=== PATIENT | male | born 1970 | race Native Hawaiian/Other Pacific Islander ===

== ENCOUNTER 2016-12-01 09:02 | Day surgery (SDC) | payer OTHER ==
[2016-11-30 06:39] VITALS: BMI 16.9
[2016-12-01] MEDS ORDERED: Propofol 10 mg/ml Inj (20 ML) ONE (09:52)
[2016-12-01] MEDS ORDERED: Midazolam 2 MG/2 ML VIAL ONE (09:52)
[2016-12-01] MEDS ORDERED: Lactated Ringer's 1,000 ML IV SCH (11:00)
[2016-12-01 11:55] VITALS: BP 111/76; PULSE 78; RESP 16; TEMP 97.7; O2SAT 100
== END 2016-12-01 13:00 | disposition home or self-care (01) ==
LOC: ENDO 09:02
PROVIDERS: ATTEND Internal Medicine Gastroenterology
DX: R13.10 Dysphagia, unspecified (principal); K29.70 Gastritis, unspecified, without bleeding; C32.1 Malignant neoplasm of supraglottis; Z94.0 Kidney transplant status
CPT/HCPCS: 43235; J0690; J2250; J2704; J3010; J7040; J7120

== ENCOUNTER 2016-12-06 03:05 | Observation (INO) | payer OTHER ==
[2016-12-06] MEDS ORDERED: Sodium Chloride 0.9% 1,000 ML IV SCH (03:45)
[2016-12-06 04:29] LABS: ALB/GLOB RATIO 1.1 (1.1-1.8); ALKALINE PHOSPHATASE 67 U/L (38-133); ALT/SGPT 25 U/L (7-56); AST/SGOT 35 U/L (15-59); BILIRUBIN,TOTAL 0.5 mg/dL (0.2-1.3); BLOOD UREA NITROGEN 43 mg/dL (7-21); CALCIUM 9.5 mg/dL (8.4-10.5); CARBON DIOXIDE 28 mmol/L (21-33); CHLORIDE 100 mmol/L (98-107); GFR AFRICAN-AMERICAN > 60; GLUCOSE,RANDOM 86 mg/dL (70-110); POTASSIUM 4.6 mmol/L (3.6-5.0); SODIUM 138 mmol/L (132-148)
[2016-12-06 04:30] LABS: INR 0.99 (0.93-1.08); PARTIAL THROMBOPLASTIN TIME 28.2 Seconds (23.7-30.8)
--- NOTE | 2016-12-06 04:34 | ED PDOC ---
Arrival/HPI - General Chief Complaint: GI Problem Time Seen by Provider: 12/06/16 03:23 Historian: Patient - History of Present Illness Narrative History of Present Illness (Text): 12/06/16 03:33 Maikel Ott is a 46 year old male, whose past medical history includes renal transplant, who presents to the Emergency department complaining of hemoptysis. Patient states he has been coughing up blood since yesterday and notes he recently had an upper endoscopy performed by his behavioral health aide on 12/01/2016. 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 Patient also complaining of some dizziness. Patient denies any fever, chills, chest pain, shortness of breath, nausea, vomiting, diarrhea, urinary symptoms, back pain, neck pain, headache, or any other complaints. Time/Duration: Other (yesterday) Symptom Onset: Gradual Symptom Course: Unchanged Activities at Onset: Rest, Light Context: Home Past Medical History - Provider Review Nursing Documentation Reviewed: Yes - Infectious Disease Hx of Infectious Diseases: None - Cardiac Hx Pacemaker: No - Pulmonary Hx Respiratory Disorders: No - Neurological Hx Paralysis: No - HEENT Hx HEENT Disorder: No - Renal Hx Renal Failure: Yes (right kidney transplant) - Endocrine/Metabolic Hx Endocrine Disorders: No - Hematological/Oncological Hx Blood Transfusions: No Hx Blood Transfusion Reaction: No Hx Cancer: Yes (Throat CA) - Integumentary Hx Dermatological Disorder: No - Musculoskeletal/Rheumatological Hx Musculoskeletal Disorders: No - Gastrointestinal Hx Gastrointestinal Disorders: No - Genitourinary/Gynecological Hx Genitourinary Disorders: No - Psychiatric Hx Emotional Abuse: No Hx Physical Abuse: No Hx Substance Use: No - Surgical History Other/Comment: Kidney transplant - Anesthesia Hx Anesthesia: Yes Hx Anesthesia Reactions: No Hx Malignant Hyperthermia: No - Suicidal Assessment Feels Threatened In Home Enviroment: No Family/Social History - Physician Review Nursing Documentation Reviewed: Yes Family/Social History: No Known Family HX Smoking Status: Never Smoked Hx Alcohol Use: No Hx Substance Use: No Allergies/Home Meds Allergies/Adverse Reactions: Allergies No Known Allergies Allergy (Verified 11/14/16 16:26) Review of Systems - Physician Review All systems were reviewed & negative as marked: Yes - Review of Systems Constitutional: Normal. absent: Fevers Eyes: Normal ENT: Normal Respiratory: Cough (+hemoptysis). absent: SOB Cardiovascular: Normal. absent: Chest Pain Gastrointestinal: Normal. absent: Abdominal Pain, Diarrhea, Nausea, Vomiting Genitourinary Male: Normal. absent: Dysuria, Frequency, Hematuria, Urinary Output Changes Musculoskeletal: Normal. absent: Back Pain, Neck Pain Skin: Normal. absent: Rash Neurological: Dizziness. absent: Headache Endocrine: Normal Hemo/Lymphatic: Normal Psychiatric: Normal Physical Exam Vital Signs Reviewed: Yes Vital Signs Temp Pulse Resp BP Pulse Ox 12/06/16 03:16 98.2 F 103 H 18 101/68 98 Temperature: Afebrile Blood Pressure: Normal Pulse: Regular Respiratory Rate: Normal Appearance: Positive for: Non-Toxic, Comfortable, Other (Emaciated) Pain Distress: None Mental Status: Positive for: Alert and Oriented X 3 - Systems Exam Head: Present: Atraumatic, Normocephalic Pupils: Present: PERRL Extroacular Muscles: Present: EOMI Conjunctiva: Present: Normal Mouth: Present: Moist Mucous Membranes Neck: Present: Normal Range of Motion Respiratory/Chest: Present: Clear to Auscultation, Good Air Exchange. No: Respiratory Distress, Accessory Muscle Use Cardiovascular: Present: Regular Rate and Rhythm, Normal S1, S2. No: Murmurs Abdomen: Present: Normal Bowel Sounds. No: Tenderness, Distention, Peritoneal Signs Back: Present: Normal Inspection Upper Extremity: Present: Normal Inspection. No: Cyanosis, Edema Lower Extremity: Present: Normal Inspection. No: Edema Neurological: Present: GCS=15, CN II-XII Intact, Speech Normal Skin: Present: Warm, Dry, Normal Color. No: Rashes Psychiatric: Present: Alert, Oriented x 3, Normal Insight, Normal Concentration Medical Decision Making ED Course and Treatment: 12/06/16 03:33 Impression: 46 year old male complaining of hemoptysis and dizziness. Plan: -- EKG -- Chest X-ray -- Labs, blood type and screen -- IV fluids -- Reassess and disposition Prior Visits: Notes and results from previous visits were reviewed. Progress Notes: Reviewed EKG, NSR at [address]-segment elevations or depressions, no T-wave inversions, normal intervals. 12/06/16 04:[address] Gomes, covering for Dr. Crawford, who requests pt go to hospitalist service. 12/06/16 04:50 Reviewed Chest X-ray, shows no acute processes. 12/06/16 05:00 Case discussed with medical sales consultant transmission mechanic, who is aware and agrees with plan. 12/06/16 05:[address] Vale, who is aware and agrees with plan. Accepts pt in to hospitalist service. Pt will go to [facility] observation for hemoptyisis and epiglottic mass/cancer. - Lab Interpretations Lab Results: 12/06/16 03:58 12/06/16 03:58 Lab Results 12/06/16 04:00: Blood Type Pending, Antibody Screen Pending, BBK History Checked No verified bt 12/06/16 03:58: PT 10.7, INR 0.99, APTT 28.2 12/06/16 03:58: Sodium 138, Potassium 4.6, Chloride 100, Carbon Dioxide 28, Anion Gap 15, BUN 43 H, Creatinine 1.5 H, Est GFR ( Amer) > 60, Est GFR ( Non-Af Amer) 50, Random Glucose 86, Calcium 9.5, Total Bilirubin 0.5, AST 35, ALT 25, Alkaline Phosphatase 67, Total Protein 8.0, Albumin 4.1, Globulin 3.9, Albumin/Globulin Ratio 1.1 12/06/16 03:58: WBC 6.7, RBC 3.33 L, Hgb 10.0 L, Hct 29.8 L, MCV 89.5, MCH 30.0 , MCHC 33.6, RDW 14.4, Plt Count 406, MPV 9.8 I have reviewed the lab results: Yes - RAD Interpretation Radiology Orders: 12/06/16 03:40 CHEST PORTABLE [RAD] Stat Nephrologist: ED Physician - EKG Interpretation Interpreted by ED Physician: Yes Type: 12 lead EKG - Medication Orders Current Medication Orders: Sodium Chloride (Sodium Chloride 0.9%) 1,000 mls @ 100 mls/hr IV .Q10H KEHINDE - Scribe Statement The provider has reviewed the documentation as recorded by the Scribe Suzy Aguirre All medical record entries made by the Scribe were at my direction and personally dictated by me. I have reviewed the chart and agree that the record accurately reflects my personal performance of the history, physical exam, medical decision making, and the department course for this patient. I have also personally directed, reviewed, and agree with the discharge instructions and disposition. Disposition/Present on Arrival - Present on Arrival Any Indicators Present on Arrival: No History of DVT/PE: No History of Uncontrolled Diabetes: No Urinary Catheter: No History of Decub. Ulcer: No History Surgical Site Infection Following: None - Disposition Have Diagnosis and Disposition been Completed?: Yes Diagnosis: Mass of throat, History of renal transplant, Hemoptysis Disposition: HOSPITALIZED Disposition Time: 05:29 Patient Plan: Observation Patient Problems: Current Active Problems Problem Status Onset Hemoptysis Acute Mass of throat Acute History of renal transplant Chronic Condition: STABLE
[2016-12-06 04:39] VITALS: BMI 16.5
[2016-12-06 04:49] LABS: HEMATOCRIT 29.8 % (42.0-52.0); MEAN CELL VOLUME 89.5 fL (80.0-105.0); MEAN CORPUSCULAR HGB CONC 33.6 g/dl (31.0-37.0); MEAN PLATELET VOLUME 9.8 fl (7.0-11.0); RED CELL DISTRIBUTION WIDTH 14.4 % (11.5-14.5); WHITE BLOOD COUNT 6.7 10^3/ul (4.5-11.0)
--- NOTE | 2016-12-06 05:42 | CP.PCM.HP ---
<[employer] - Last Filed: 12/06/16 07:07> History of Present Illness - History of Present Illness History of Present Illness: 46 y/o M with PMH of Squamous cell carcinoma of the epiglottis and right renal transplant presents to the ED for 2 day history of hemoptysis. Pt states he had an EGD done 3 days ago, since that time he has noticed new onset hemotysis. He has states he brings up blood mixed with phlegm multiple times per day since his EGD. Pt states it is not painful. 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 EGD reveal an exophytic mass covering 50% of the airway. Pt is able to tolerate liquids, but not solids at this time. Pt does however state he is normally able to tolerate bananas, but as of last night , pt could not swallow it. He admits to recent weight loss secondary to decreased oral intake and increased fatigue. Pt also mentions b/l nasal pain since EGD procedure. Denies CP, SOB, N/V/D, headache, visual changes, dysuria, abdominal pain. 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 Allergies: NKDA Medication: Prednisone, Azathioprine, Ferrous sulfate Present on Admission - Present on Admission Any Indicators Present on Admission: No Review of Systems - Constitutional Constitutional: Fatigue, Lethargy, Weight Loss. absent: Fever - EENT Eyes: absent: Blurred Vision, Change in Vision Nose/Mouth/Throat: Nose Pain. absent: Epistaxis, Nasal Discharge, Nasal Trauma - Cardiovascular Cardiovascular: absent: Chest Pain, Irregular Heart Rhythm - Respiratory Respiratory: Cough, Hemoptysis. absent: Dyspnea - Gastrointestinal Gastrointestinal: absent: Abdominal Pain, Diarrhea, Vomiting - Genitourinary Genitourinary: absent: Dysuria, Hematuria - Integumentary Integumentary: absent: New Lesions, Rash - Neurological Neurological: absent: Numbness, Syncope, Tingling - Hematologic/Lymphatic Hematologic: absent: Easy Bleeding, Easy Bruising Past Patient History - Infectious Disease Hx of Infectious Diseases: None - Past Medical History & Family History Past Medical History?: Yes - Past Social History Smoking Status: Never Smoked - CARDIAC Hx Pacemaker: No - PULMONARY Hx Respiratory Disorders: No - NEUROLOGICAL Hx Paralysis: No - HEENT Hx HEENT Problems: No - RENAL Hx Renal Failure: Yes (right kidney transplant) - ENDOCRINE/METABOLIC Hx Endocrine Disorders: No - HEMATOLOGICAL/ONCOLOGICAL Hx Blood Transfusions: No Hx Blood Transfusion Reaction: No Hx Cancer: Yes (Throat CA) - INTEGUMENTARY Hx Dermatological Problems: No - MUSCULOSKELETAL/RHEUMATOLOGICAL Hx Musculoskeletal Disorders: No - GASTROINTESTINAL Hx Gastrointestinal Disorders: No - GENITOURINARY/GYNECOLOGICAL Hx Genitourinary Disorders: No - PSYCHIATRIC Hx Emotional Abuse: No Hx Physical Abuse: No Hx Substance Use: No - SURGICAL HISTORY Other/Comment: Kidney transplant - ANESTHESIA Hx Anesthesia: Yes Hx Anesthesia Reactions: No Hx Malignant Hyperthermia: No Meds Allergies/Adverse Reactions: Allergies Allergy/AdvReac Type Severity Reaction Status Date / Time No Known Allergies Allergy Verified 12/06/16 14:30 Physical Exam - Constitutional Appears: Well, No Acute Distress - Head Exam Head Exam: ATRAUMATIC, NORMAL INSPECTION, NORMOCEPHALIC - Eye Exam Eye Exam: EOMI, Normal appearance - ENT Exam ENT Exam: Mucous Membranes Dry, Normal Exam, Normal Oropharynx Additional comments: No masses visualized. No edema. - Neck Exam Neck exam: Positive for: Normal Inspection. Negative for: Lymphadenopathy - Respiratory Exam Respiratory Exam: Clear to Auscultation Bilateral, NORMAL BREATHING PATTERN. absent: Rales, Rhonchi, Wheezes - Cardiovascular Exam Cardiovascular Exam: RRR, +S1, +S2 - GI/Abdominal Exam GI & Abdominal Exam: Normal Bowel Sounds, Soft. absent: Tenderness - Extremities Exam Extremities exam: Positive for: normal inspection. Negative for: calf tenderness, pedal edema - Neurological Exam Neurological exam: Alert, CN II-XII Intact, Oriented x3 - Psychiatric Exam Psychiatric exam: Normal Affect, Normal Mood - Skin Skin Exam: Intact, Normal Color, Warm Results - Vital Signs Recent Vital Signs: Last Vital Signs Temp 98.2 F 12/06/16 03:16 Pulse 103 H 12/06/16 03:16 Resp 18 12/06/16 03:16 BP 101/68 12/06/16 03:16 Pulse Ox 98 12/06/16 03:16 - Labs Result Diagrams: 12/06/16 03:58 12/06/16 03:58 Labs: Laboratory Results - last 24 hr 12/06/16 12/06/16 12/06/16 03:58 03:58 03:58 WBC 6.7 RBC 3.33 L Hgb 10.0 L Hct 29.8 L MCV 89.5 MCH 30.0 MCHC 33.6 RDW 14.4 Plt Count 406 MPV 9.8 PT 10.7 INR 0.99 APTT 28.2 Sodium 138 Potassium 4.6 Chloride 100 Carbon Dioxide 28 Anion Gap 15 BUN 43 H Creatinine 1.5 H Est GFR ( Amer) > 60 Est GFR (Non-Af Amer) 50 Random Glucose 86 Calcium 9.5 Total Bilirubin 0.5 AST 35 ALT 25 Alkaline Phosphatase 67 Total Protein 8.0 Albumin 4.1 Globulin 3.9 Albumin/Globulin Ratio 1.1 BBK History Checked 12/06/16 04:00 WBC RBC Hgb Hct MCV MCH MCHC RDW Plt Count MPV PT INR APTT Sodium Potassium Chloride Carbon Dioxide Anion Gap BUN Creatinine Est GFR ( Amer) Est GFR (Non-Af Amer) Random Glucose Calcium Total Bilirubin AST ALT Alkaline Phosphatase Total Protein Albumin Globulin Albumin/Globulin Ratio BBK History Checked No verified bt Assessment & Plan - Assessment and Plan (Free Text) Plan: 46 y/o M with PMH with SCC of epiglottis and Right renal transplant presents with hemoptysis. Pt will be admitted to floors. Consults will be placed for ENT , GI, and heme/onc. 1. Hemoptysis Monitor Hg closely, at baseline ENT, GI, Heme/Onc consulted Promethazine/codeine for cough Speech and swallow 2. DAIANA, hx of renal transplant D5 1/2 NS @100 Monitor creatinine 3. Hx of SCC of Epiglottis Heme/onc consult, scheduled for PET scan tomorrow GI consult, considering possible PEG tube placement 4. PPX Zofran Protonix SCDs Seen, reviewed, and discussed with attending Black PGY-1 <Carmelo Vale Q - Last Filed: 12/06/16 23:19> Results - Vital Signs Recent Vital Signs: Last Vital Signs Temp 98.5 F 12/06/16 21:12 Pulse 65 12/06/16 21:12 Resp 14 12/06/16 21:12 BP 93/60 L 12/06/16 21:12 Pulse Ox 100 12/06/16 16:00 - Labs Result Diagrams: 12/06/16 16:50 12/06/16 03:58 Labs: Laboratory Results - last 24 hr 12/06/16 16:50 WBC 12.1 H D RBC 2.73 L Hgb 8.2 L Hct 24.2 L MCV 88.6 MCH 30.0 MCHC 33.9 RDW 14.5 Plt Count 329 MPV 9.7 Attending/Attestation - Attestation I have personally seen and examined this patient.: Yes I have fully participated in the care of the patient.: Yes I have reviewed all pertinent clinical information: Yes
[2016-12-06] MEDS: Dextrose 5%/0.45% NS 1,000 ML IV SCH (07:47)
--- NOTE | 2016-12-06 09:22 | RAD ---
HISTORY: hemoptysis COMPARISON: No prior. FINDINGS: LUNGS: No active pulmonary disease. PLEURA: No significant pleural effusion identified, no pneumothorax apparent. CARDIOVASCULAR: Normal. OSSEOUS STRUCTURES: No significant abnormalities. VISUALIZED UPPER ABDOMEN: Normal. OTHER FINDINGS: None. IMPRESSION: No active disease.
--- NOTE | 2016-12-06 10:04 | CP.PCM.CON ---
History of Present Illness - History of Present Illness History of Present Illness: General Surgery Consult Note for Dr. Michael Romano, PGY1 HPI: Patient is a 46yo male with past medical history of SCC of the epiglottis and left unilateral renal agenesis s/p right renal transplant (over 25yrs ago) presents c/o hemoptysis. Patient reported that he had an EGD done on Sunday (6 days ago) and 3 days after noticed hemoptysis. He states that he coughs up blood and phlegm. Patient reported that he was first informed of the mass on his epiglottis in August 2016 when he began experiencing dysphagia with solid foods. Patient reports that he is able to tolerate liquids and has no issues with breathing. EGD revealed a malignant exophytic mass of the epiglottis covering 50% of the airway that was found to be consistent with squamos cell carcinoma of the epiglottis. EGD was performed for the purposes of PEG tube placement however was unable to be placed due to lack of transillumination and 1 :1 pressure. Surgery consulted for evaluation for PEG tube placement. Denies chest pain, palpitations, SOB, abdominal pain, nausea, fever, chills. Admits to weight loss secondary to decreased oral intake. PMHx: SCC of epiglottis, Left unilateral renal agenesis PSHx: Right renal transplant - 1990 Family Hx: Unremarkable Social Hx: Denies alcohol, tobacco, or illicit drug use. Allergies: NKDA Medication: Prednisone, Azathioprine, Ferrous sulfate Oncologist: Dr. Bar Past Patient History - Infectious Disease Hx of Infectious Diseases: None - Past Medical History & Family History Past Medical History?: Yes - Past Social History Smoking Status: Never Smoked - CARDIAC Hx Pacemaker: No - PULMONARY Hx Respiratory Disorders: No - NEUROLOGICAL Hx Paralysis: No - HEENT Hx HEENT Problems: No - RENAL Hx Renal Failure: Yes (right kidney transplant) - ENDOCRINE/METABOLIC Hx Endocrine Disorders: No - HEMATOLOGICAL/ONCOLOGICAL Hx Blood Transfusions: No Hx Blood Transfusion Reaction: No Hx Cancer: Yes (Throat CA) - INTEGUMENTARY Hx Dermatological Problems: No - MUSCULOSKELETAL/RHEUMATOLOGICAL Hx Musculoskeletal Disorders: No - GASTROINTESTINAL Hx Gastrointestinal Disorders: No - GENITOURINARY/GYNECOLOGICAL Hx Genitourinary Disorders: No - PSYCHIATRIC Hx Emotional Abuse: No Hx Physical Abuse: No Hx Substance Use: No - SURGICAL HISTORY Other/Comment: Kidney transplant - ANESTHESIA Hx Anesthesia: Yes Hx Anesthesia Reactions: No Hx Malignant Hyperthermia: No Meds Allergies/Adverse Reactions: Allergies Allergy/AdvReac Type Severity Reaction Status Date / Time No Known Allergies Allergy Verified 11/14/16 16:26 - Medications Medications: Current Medications Azathioprine (Imuran) 50 mg PO DAILY [facility] Ferrous Sulfate (Feosol) 324 mg PO DAILY [facility] Dextrose/Sodium Chloride (Dextrose 5%/0.45% Ns 1000 Ml) 1,000 mls @ 100 mls/hr IV .Q10H [facility] Last Admin: 12/06/16 07:47 Dose: 100 mls/hr Ondansetron HCl (Zofran Inj) 4 mg IVP Q4H PRN PRN Reason: Nausea/Vomiting Pantoprazole Sodium (Protonix Inj) 40 mg IVP DAILY [facility] Prednisone (Prednisone Tab) 5 mg PO DAILY [facility] Promethazine HCl/Codeine (Phenergan/Codeine Oral Syrup) 5 ml PO Q4H PRN PRN Reason: Cough and congestion Physical Exam - Constitutional Appears: Non-toxic, No Acute Distress - Head Exam Head Exam: ATRAUMATIC, NORMAL INSPECTION, NORMOCEPHALIC - Eye Exam Eye Exam: EOMI, PERRL - ENT Exam ENT Exam: Mucous Membranes Moist, Normal Oropharynx Additional comments: no visible oral lesions - Neck Exam Neck exam: Positive for: Normal Inspection - Respiratory Exam Respiratory Exam: Clear to Auscultation Bilateral. absent: Rales, Rhonchi, Wheezes - Cardiovascular Exam Cardiovascular Exam: RRR, +S1, +S2. absent: Diastolic murmur, Gallop, Rubs, Systolic Murmur - GI/Abdominal Exam GI & Abdominal Exam: Normal Bowel Sounds, Soft. absent: Distended, Firm, Guarding, Tenderness - Extremities Exam Extremities exam: Positive for: normal inspection. Negative for: pedal edema - Neurological Exam Neurological exam: Alert, CN II-XII Intact, Oriented x3 - Psychiatric Exam Psychiatric exam: Normal Affect, Normal Mood - Skin Skin Exam: Dry, Intact, Normal Color, Warm Results - Vital Signs Recent Vital Signs: Last Vital Signs Temp 98.0 F 12/06/16 06:24 Pulse 77 12/06/16 08:15 Resp 98 H 12/06/16 07:25 BP 118/68 12/06/16 08:15 Pulse Ox 98 12/06/16 08:15 - Labs Result Diagrams: 12/06/16 03:58 12/06/16 03:58 Assessment & Plan - Assessment and Plan (Free Text) Plan: 46yo male with history of SCC of the epiglottis and left unilateral renal agenesis s/p right renal transplant presents c/o hemoptysis x2days. Surgery consulted for PEG tube evaluation -EGD from 12/01/16 and 11/15/16 reviewed -Soft tissue neck CT from 11/06 reviewed -Pathology report reviewed -Continue current medical management -Patient to be evaluated for possible surgical PEG tube placement Case to be discussed with attending, Dr. Rodriguez - Date & Time Date: 12/06/16 Time: 10:13
[2016-12-06] MEDS: Promethazine/Cod 6.25mg-10mg/5ml Syr UD PO PRN ×2 (14:41→19:05)
[2016-12-06] MEDS ORDERED: Pneumococcal 23-Valent Vaccine IM ONE (15:52)
[2016-12-06] MEDS ORDERED: Lidocaine 5% Oint(35 gm) TOP ONE (16:09)
--- NOTE | 2016-12-06 16:26 | CARD ---
APPROVED REPORT EKG Measurement Heart [id number] <Conclusion> Normal sinus rhythm Normal ECG
[2016-12-06 17:02] LABS: HEMATOCRIT 24.2 % (42.0-52.0); MEAN CELL VOLUME 88.6 fL (80.0-105.0); MEAN CORPUSCULAR HGB CONC 33.9 g/dl (31.0-37.0); MEAN PLATELET VOLUME 9.7 fl (7.0-11.0); RED CELL DISTRIBUTION WIDTH 14.5 % (11.5-14.5); WHITE BLOOD COUNT 12.1 10^3/ul (4.5-11.0)
--- NOTE | 2016-12-06 18:15 | CP.PCM.PCO ---
Physician Communication Note - Physician Communication Note Physician Communication Note: OR arnulfo: gastrostomy placement: ~1PM; keep NPO
--- NOTE | 2016-12-06 20:39 | CP.PCM.CON ---
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 He was admitted to [facility] in October 2016 with progressive dysphagia for 2 months with 6-[address] neck showed a 1.9 x 3.7 x 5.6 cm glottic mass with supraglottic extension involving paraglottic space and invasion into the epiglottis. There was a 5 mm lymph node at level 2B on left. He underwent EGD- Esophagus was normal and there was diffuse mild inflammation in stomach. 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 No prior history of smoking or oral tobacco use. He was admitted now with hemoptysis- 2-3 episodes. He also mentions sneezing and "cold" symptoms recently. Denies fever, chills or SOB. Eating mostly liquid / semi solid food. Family and Social history reviewed Review of Systems - Review of Systems All systems: reviewed and no additional remarkable complaints except Review of Systems: as in HPI - Constitutional Constitutional: Fatigue, Weight Loss. absent: Chills, Fever - EENT Eyes: absent: Blind Spots, Blurred Vision, Change in Vision Ears: absent: Decreased Hearing, Ear Discharge, Ear Pain Past Patient History - Infectious Disease Hx of Infectious Diseases: None - Past Medical History & Family History Past Medical History?: Yes - Past Social History Smoking Status: Never Smoked - CARDIAC Hx Cardiac Disorders: No Hx Pacemaker: No - PULMONARY Hx Respiratory Disorders: Yes (HEMOPTYSIS,EPIGLOTTIS MASS/CA) - NEUROLOGICAL Hx Neurological Disorder: No - HEENT Hx HEENT Problems: Yes - RENAL Hx Chronic Kidney Disease: Yes Hx Renal Failure: Yes (kidney transplant) Other/Comment: BORN WITH 1 KIDNEY ONLY - ENDOCRINE/METABOLIC Hx Endocrine Disorders: No - HEMATOLOGICAL/ONCOLOGICAL Hx Blood Disorders: Yes Hx Cancer: Yes (epiglottis MASS,SQUAMOS CELL CA.) - INTEGUMENTARY Hx Dermatological Problems: Yes (GENERALIZED SKIN DRYNESS,SLIGHTLY JAUNDICED, DUSKY) - MUSCULOSKELETAL/RHEUMATOLOGICAL Hx Musculoskeletal Disorders: No Hx Falls: No - GASTROINTESTINAL Hx Gastrointestinal Disorders: Yes (DYSPHAGIA) - GENITOURINARY/GYNECOLOGICAL Hx Genitourinary Disorders: No - PSYCHIATRIC Hx Emotional Abuse: No Hx Physical Abuse: No Hx Substance Use: No - SURGICAL HISTORY Hx Surgeries: Yes Other/Comment: Kidney transplant - ANESTHESIA Hx Anesthesia: Yes Hx Anesthesia Reactions: No Hx Malignant Hyperthermia: No Meds Allergies/Adverse Reactions: Allergies Allergy/AdvReac Type Severity Reaction Status Date / Time No Known Allergies Allergy Verified 12/06/16 14:30 - Medications Medications: Current Medications Azathioprine (Imuran) 50 mg PO DAILY [facility] Last Admin: 12/06/16 11:21 Dose: 50 mg Ferrous Sulfate (Feosol) 324 mg PO DAILY [facility] Last Admin: 12/06/16 11:21 Dose: 324 mg Dextrose/Sodium Chloride (Dextrose 5%/0.45% Ns 1000 Ml) 1,000 mls @ 100 mls/hr IV .Q10H [facility] Last Admin: 12/06/16 07:47 Dose: 100 mls/hr Ondansetron HCl (Zofran Inj) 4 mg IVP Q4H PRN PRN Reason: Nausea/Vomiting Pantoprazole Sodium (Protonix Inj) 40 mg IVP DAILY [facility] Last Admin: 12/06/16 11:21 Dose: 40 mg Prednisone (Prednisone Tab) 5 mg PO DAILY [facility] Last Admin: 12/06/16 11:22 Dose: 5 mg Promethazine HCl/Codeine (Phenergan/Codeine Oral Syrup) 5 ml PO Q4H PRN PRN Reason: Cough and congestion Last Admin: 12/06/16 19:05 Dose: 5 ml Physical Exam - Head Exam Head Exam: ATRAUMATIC, NORMAL INSPECTION - Eye Exam Eye Exam: EOMI, PERRL - ENT Exam ENT Exam: Mucous Membranes Moist - Neck Exam Neck exam: Negative for: Lymphadenopathy - Respiratory Exam Respiratory Exam: Clear to Auscultation Bilateral - Cardiovascular Exam Cardiovascular Exam: REGULAR RHYTHM - GI/Abdominal Exam GI & Abdominal Exam: Normal Bowel Sounds, Soft. absent: Organomegaly, Tenderness - Extremities Exam Extremities exam: Negative for: pedal edema - Neurological Exam Neurological exam: Alert, Oriented x3 Results - Vital Signs Recent Vital Signs: Last Vital Signs Temp 98.7 F 12/06/16 16:00 Pulse 78 12/06/16 16:00 Resp 20 12/06/16 16:00 BP 105/67 12/06/16 16:00 Pulse Ox 100 12/06/16 16:00 - Labs Result Diagrams: 12/06/16 16:50 12/06/16 03:58 Labs: Laboratory Results - last 24 hr 12/06/16 16:50 WBC 12.1 H D RBC 2.73 L Hgb 8.2 L Hct 24.2 L MCV 88.6 MCH 30.0 MCHC 33.9 RDW 14.5 Plt Count 329 MPV 9.7 Assessment & Plan - Assessment and Plan (Free Text) Assessment: Glottic Cancer, clinically T3 lesion I had a long discussion with him in my office regarding treatment options and multi-disciplinary approach in this case. We talked about definitive concurrent Cetuximab with RT. Will avoid [place] in his case due to h/o solitary and transplant kidney. We also discussed putting a PEG tube prior to starting treatment to maintain nutritional status. He was seen by surgery and will be arranged for G tube. He was seen by Dr. Diamond (Rad Onc) and will start treatment as outpatient ( when clinically stable) Agree with 1 unit PRBC. Monitor Hb and monitor closely for any further bleeding. Consider ENT consult if bleeding persists. Thank you for the consult Hector Bar - Date & Time Date: 12/06/16 Time: 17:39
--- NOTE | 2016-12-07 15:06 | CON ---
DATE: 12/07/2016 LOCATION: Room 566, bed 1. REASON FOR CONSULTATION: To evaluate hemoptysis and epiglottic mass. HISTORY OF PRESENT ILLNESS: Unable to evaluate full medical records to including a full history of p resent illness due to lack of computer accessibility. [facility] computer system is down throughout the morning. Will reassess the patient's history and medical records later in the aftern oon when systems are back functioning. Slight information gathered from patient at bedside. The rudolph ent seen and examined. The patient is an [place] gentleman with a known epiglottic cancer living in [place], however, in [place] to have his radiation and other cancer therapy modalities performed in [facility]. The rosana topete admitted to have some hemoptysis when coughing due to a lesion. ENT consulted to evaluate. Th e patient does note some slight decrease in weight secondary to just not eating as much. The patient denies any chest pain, shortness of breath, nausea, vomiting, diarrhea. Denies any fevers. ALLERGIES: No known drug allergies. PHYSICAL EXAMINATION: VITAL SIGNS: Stable as reported by nursing; however, unable to evaluate the actual reads on the [employer] system. Labs unable to evaluate due to the computer system being down. GENERAL: Alert and oriented x 3, no acute distress. EYES: PERRLA. MOUTH: Moist mucous membranes. Symmetric palate elevation. Poor dentition. No tongue swelling. T ongue midline. NECK: Bilateral lymphadenopathy in the ____ cervical chains. Trachea appears midline. RESPIRATORY: No stridor, nonlabored breathing. The patient's voice appeared to be moderately muffle d. Fiberoptic laryngoscopy: The patient was ____ and a fiberoptic laryngoscope was inserted into the rosana topete's right and left in order to evaluate. The scope was advanced through the right naris, through the nasopharynx. No masses or lesions noted. Scope was then advanced down to the oropharynx ____ f rom above in the oropharynx. Please note that there was a lesion, a large mildly obstructing lesion o n the left side of the epiglottis. Scope was then advanced down as far as the epiglottis ____ visual ized. Unable to evaluate the patient's larynx at this time as the epiglottis lesion is obstructing v iew of vocal cords. The patient able to phonate. Phonation appears somewhat unremarkable; however, unable to fully evaluate the patient's vocal cord motion and larynx ____ due to obstructing epiglotti c mass. Scope removed without incident. ASSESSMENT AND PLAN: The patient is a 46-year-old [place]an male with a left-sided epiglottic lesion. Unable to evaluate CT scans as computer system is not available this morning at [facility]. We will assess later in the afternoon. The epiglottic lesion on the left side is obstructing visualization of the vocal cords and larynx. PLAN: The patient planned for a ____ procedure with possible light sedation; however, patient may be a very difficult airway and intubation if needed. Would recommend tracheostomy due to the nature of patient's lesion at this time. Will reevaluate given access to the computer system ____. Italo Hernandez DO cc: [id number] TT: 12/07/2016 14:36:30 Confirmation # [id number] Dictation # [id number] rn 12/07/2016 13:39:13
[2016-12-07] MEDS: Promethazine/Cod 6.25mg-10mg/5ml Syr UD PO PRN (22:26)
[2016-12-07] MEDS: Dextrose 5%/0.45% NS 1,000 ML IV SCH (22:26)
[2016-12-08] MEDS: Promethazine/Cod 6.25mg-10mg/5ml Syr UD PO PRN (06:42)
[2016-12-08 07:20] LABS: HEMATOCRIT 31.2 % (42.0-52.0); MEAN CELL VOLUME 86.9 fL (80.0-105.0); MEAN CORPUSCULAR HEMOGLOBIN 29.8 pg (25.0-35.0); MEAN CORPUSCULAR HGB CONC 34.3 g/dl (31.0-37.0); MEAN PLATELET VOLUME 9.6 fl (7.0-11.0); RED CELL DISTRIBUTION WIDTH 15.1 % (11.5-14.5); WHITE BLOOD COUNT 6.1 10^3/ul (4.5-11.0)
[2016-12-08 07:43] LABS: INR 1.02 (0.93-1.08); PARTIAL THROMBOPLASTIN TIME 28.5 Seconds (23.7-30.8)
[2016-12-08 08:05] LABS: ALKALINE PHOSPHATASE 51 U/L (38-133); ALT/SGPT 27 U/L (7-56); AST/SGOT 17 U/L (15-59); BILIRUBIN,TOTAL 0.9 mg/dL (0.2-1.3); BLOOD UREA NITROGEN 19 mg/dL (7-21); CALCIUM 8.6 mg/dL (8.4-10.5); CARBON DIOXIDE 28 mmol/L (21-33); CHLORIDE 104 mmol/L (98-107); GFR AFRICAN-AMERICAN > 60; GLUCOSE,RANDOM 97 mg/dL (70-110); POTASSIUM 3.7 mmol/L (3.6-5.0); SODIUM 141 mmol/L (132-148); TOTAL PROTEIN 6.5 g/dL (5.8-8.3)
--- NOTE | 2016-12-08 09:33 | CP.PCM.PN ---
<Dolores Ghotra - Last Filed: 12/08/16 16:16> Subjective - Date & Time of Evaluation Date of Evaluation: 12/08/16 Time of Evaluation: 09:26 - Subjective Subjective: HOSPITALISTS PROGRESS NOTE Pt is seen and examined at bedside. No acute events overnight. Pt denies having any Cp, SOB, abd pain, N/V/D/C. Patient is tolerating liquid diet. Objective - Vital Signs/Intake and Output Vital Signs (last 24 hours): Temp Pulse Resp BP Pulse Ox 97.4 F L 69 16 107/69 99 12/08/16 07:30 12/08/16 07:30 12/08/16 07:30 12/08/16 07:30 12/08/16 07:30 Intake and Output: 12/08/16 12/08/16 06:59 18:59 Intake Total 2400 Output Total 800 Balance 1600 - Medications Medications: Current Medications Azathioprine (Imuran) 50 mg PO DAILY [facility] Last Admin: 12/06/16 11:21 Dose: 50 mg Ferrous Sulfate (Feosol) 324 mg PO DAILY [facility] Last Admin: 12/06/16 11:21 Dose: 324 mg Dextrose/Sodium Chloride (Dextrose 5%/0.45% Ns 1000 Ml) 1,000 mls @ 100 mls/hr IV .Q10H [facility] Last Admin: 12/07/16 22:26 Dose: 100 mls/hr Ondansetron HCl (Zofran Inj) 4 mg IVP Q4H PRN PRN Reason: Nausea/Vomiting Pantoprazole Sodium (Protonix Inj) 40 mg IVP DAILY [facility] Last Admin: 12/06/16 11:21 Dose: 40 mg Prednisone (Prednisone Tab) 5 mg PO DAILY [facility] Last Admin: 12/06/16 11:22 Dose: 5 mg Promethazine HCl/Codeine (Phenergan/Codeine Oral Syrup) 5 ml PO Q4H PRN PRN Reason: Cough and congestion Last Admin: 12/08/16 06:42 Dose: 5 ml - Labs Labs: 12/08/16 07:00 12/08/16 07:00 PT 11.0 Seconds (9.9-11.8) 12/08/16 07:00 INR 1.02 (0.93-1.08) 12/08/16 07:00 APTT 28.5 Seconds (23.7-30.8) 12/08/16 07:00 - Constitutional Appears: Non-toxic, No Acute Distress - Head Exam Head Exam: ATRAUMATIC - Eye Exam Eye Exam: EOMI - ENT Exam ENT Exam: Mucous Membranes Moist - Respiratory Exam Respiratory Exam: Clear to Ausculation Bilateral. absent: Rales, Rhonchi, Wheezes - Cardiovascular Exam Cardiovascular Exam: REGULAR RHYTHM, +S1, +S2. absent: Gallop, Rubs, Murmur - GI/Abdominal Exam GI & Abdominal Exam: Soft, Normal Bowel Sounds. absent: Distended, Firm, Guarding, Rigid, Tenderness - Extremities Exam Extremities Exam: absent: Pedal Edema, Tenderness - Neurological Exam Neurological Exam: Alert, Awake, Oriented x3 - Psychiatric Exam Psychiatric exam: Normal Affect, Normal Mood - Skin Skin Exam: Dry, Intact, Normal Color, Warm Assessment and Plan - Assessment and Plan (Free Text) Assessment: 46 y/o M with PMH with SCC of epiglottis and Right renal transplant presents with hemoptysi 1. Hemoptysis likely 2/2 epiglotic mass Pt trasfused 1 unit of PRBC yesterday. No hemoptysis overnight. Heme/onc consulted ENT consulted Promethazine/codeine for cough Clear liquid diet 2. DAIANA, hx of renal transplant Resolved 3. Hx of SCC of Epiglottis Heme/onc consulted GI consulted Sx consulted for insertion of gastric tube Pt was scheduled for tube placement yesterday. However, due to inaccessibility of previous records, procedure was cancelled. Will consider gastric tube placement by CT guided approach done by vascular. Will await further recs. 4. PPX Zofran Protonix SCDs Seen, reviewed, and discussed with attending, Dr. Mohr <Martha Mohr - Last Filed: 12/08/16 17:00> Objective - Vital Signs/Intake and Output Vital Signs (last 24 hours): Temp Pulse Resp BP Pulse Ox 98.1 F 83 16 131/89 100 12/08/16 16:00 12/08/16 16:00 12/08/16 16:00 12/08/16 16:00 12/08/16 16:00 Intake and Output: 12/08/16 12/08/16 06:59 18:59 Intake Total 2400 Output Total 800 Balance 1600 - Medications Medications: Current Medications Azathioprine (Imuran) 50 mg PO DAILY [facility] Last Admin: 12/08/16 09:47 Dose: 50 mg Ferrous Sulfate (Feosol) 324 mg PO DAILY [facility] Last Admin: 12/08/16 09:47 Dose: 324 mg Dextrose/Sodium Chloride (Dextrose 5%/0.45% Ns 1000 Ml) 1,000 mls @ 100 mls/hr IV .Q10H [facility] Last Admin: 12/08/16 11:08 Dose: 100 mls/hr Ondansetron HCl (Zofran Inj) 4 mg IVP Q4H PRN PRN Reason: Nausea/Vomiting Pantoprazole Sodium (Protonix Inj) 40 mg IVP DAILY [facility] Last Admin: 12/08/16 09:48 Dose: 40 mg Prednisone (Prednisone Tab) 5 mg PO DAILY [facility] Last Admin: 12/08/16 09:48 Dose: 5 mg Promethazine HCl/Codeine (Phenergan/Codeine Oral Syrup) 5 ml PO Q4H PRN PRN Reason: Cough and congestion Last Admin: 12/08/16 06:42 Dose: 5 ml - Labs Labs: 12/08/16 07:00 12/08/16 07:00 PT 11.0 Seconds (9.9-11.8) 12/08/16 07:00 INR 1.02 (0.93-1.08) 12/08/16 07:00 APTT 28.5 Seconds (23.7-30.8) 12/08/16 07:00 Attending/Attestation - Attestation I have personally seen and examined this patient.: Yes I have fully participated in the care of the patient.: Yes I have reviewed all pertinent clinical information, including history, physical exam and plan: Yes Notes (Text): 12/08/16 16:54 Attending note; Patient seen and examined with resident. Patient is a 46-year-old male with a past medical history of epiglottis cancer/ SCC is admitted with hemoptysis/spitting blood after coughing. Patient also had progressive dysphagia. s/p 2 units of blood transfusion. Hemoglobin is 10 today. Hematology consultation with Dr. Bar appreciated. Initially planned for PEG tube by surgery. Anesthesia had concerns about possible intubation during surgery. Patient was referred to intervention radiology for PEG placement. ENT evaluation appreciated. History of renal transplant; continue Imuran and prednisone. Patient will follow-up with PMD of choice upon discharge. Follow-up with Dr. Bar for chemotherapy. Patient will get a PET scan as outpatient. Follow-up with Radiation oncology next week.
[2016-12-08] MEDS: Dextrose 5%/0.45% NS 1,000 ML IV SCH (11:08)
[2016-12-08 12:43] LABS: HEMATOCRIT 31.9 % (42.0-52.0); MEAN CELL VOLUME 87.2 fL (80.0-105.0); MEAN CORPUSCULAR HEMOGLOBIN 29.8 pg (25.0-35.0); MEAN CORPUSCULAR HGB CONC 34.2 g/dl (31.0-37.0); MEAN PLATELET VOLUME 9.7 fl (7.0-11.0); RED CELL DISTRIBUTION WIDTH 15.3 % (11.5-14.5); WHITE BLOOD COUNT 8.2 10^3/ul (4.5-11.0)
--- NOTE | 2016-12-08 13:30 | CP.PCM.PN ---
Subjective - Date & Time of Evaluation Date of Evaluation: 12/08/16 Time of Evaluation: 13:26 - Subjective Subjective: General surgery progress note for Toño Menezes PGY1 Patient seen and examined at bedside this morning. No acute overnight events or new complaints. Surgical gastrostomy tube placement was cancelled this morning. IR consulted for their evaluation. Otherwise, denies chest pain, palpitations, SOB. Objective - Vital Signs/Intake and Output Vital Signs (last 24 hours): Temp Pulse Resp BP Pulse Ox 97.4 F L 69 16 107/69 99 12/08/16 07:30 12/08/16 07:30 12/08/16 07:30 12/08/16 07:30 12/08/16 07:30 Intake and Output: 12/08/16 12/08/16 06:59 18:59 Intake Total 2400 Output Total 800 Balance 1600 - Medications Medications: Current Medications Azathioprine (Imuran) 50 mg PO DAILY [facility] Last Admin: 12/08/16 09:47 Dose: 50 mg Ferrous Sulfate (Feosol) 324 mg PO DAILY [facility] Last Admin: 12/08/16 09:47 Dose: 324 mg Dextrose/Sodium Chloride (Dextrose 5%/0.45% Ns 1000 Ml) 1,000 mls @ 100 mls/hr IV .Q10H [facility] Last Admin: 12/08/16 11:08 Dose: 100 mls/hr Ondansetron HCl (Zofran Inj) 4 mg IVP Q4H PRN PRN Reason: Nausea/Vomiting Pantoprazole Sodium (Protonix Inj) 40 mg IVP DAILY [facility] Last Admin: 12/08/16 09:48 Dose: 40 mg Prednisone (Prednisone Tab) 5 mg PO DAILY [facility] Last Admin: 12/08/16 09:48 Dose: 5 mg Promethazine HCl/Codeine (Phenergan/Codeine Oral Syrup) 5 ml PO Q4H PRN PRN Reason: Cough and congestion Last Admin: 12/08/16 06:42 Dose: 5 ml - Labs Labs: 12/08/16 07:00 12/08/16 07:00 PT 11.0 Seconds (9.9-11.8) 12/08/16 07:00 INR 1.02 (0.93-1.08) 12/08/16 07:00 APTT 28.5 Seconds (23.7-30.8) 12/08/16 07:00 - Constitutional Appears: Non-toxic, No Acute Distress - Head Exam Head Exam: ATRAUMATIC, NORMAL INSPECTION, NORMOCEPHALIC - Eye Exam Eye Exam: EOMI, PERRL - ENT Exam ENT Exam: Mucous Membranes Moist - Respiratory Exam Respiratory Exam: Clear to Ausculation Bilateral. absent: Rales, Rhonchi, Wheezes - Cardiovascular Exam Cardiovascular Exam: RRR, +S1, +S2. absent: Gallop, Rubs - GI/Abdominal Exam GI & Abdominal Exam: Soft. absent: Distended, Firm, Guarding, Rigid, Tenderness - Extremities Exam Extremities Exam: Normal Inspection - Neurological Exam Neurological Exam: Alert, Awake, CN II-XII Intact, Oriented x3 - Psychiatric Exam Psychiatric exam: Normal Affect, Normal Mood - Skin Skin Exam: Dry, Intact, Normal Color, Warm Assessment and Plan - Assessment and Plan (Free Text) Plan: 46yo male with history of SCC of the epiglottis and left unilateral renal agenesis s/p right renal transplant presents c/o hemoptysis x2days. Surgery consulted for PEG tube evaluation -EGD from 12/01/16 and 11/15/16 reviewed -Soft tissue neck CT from 11/06 reviewed -Pathology report reviewed -Continue current medical management -Patient was originally scheduled for OR gastrostomy tube placement however procedure was cancelled due to difficulty of intubation with epiglottic mass -Patient to be evaluated for tube placement by IR intervention Case discussed with attending, Dr. Rodriguez
[2016-12-08] MEDS ORDERED: Midazolam 2 MG/2 ML VIAL ONE (16:37)
[2016-12-08 16:39] LABS: ALKALINE PHOSPHATASE 58 U/L (38-133); ALT/SGPT 26 U/L (7-56); AST/SGOT 16 U/L (15-59); BILIRUBIN,TOTAL 1.3 mg/dL (0.2-1.3); BLOOD UREA NITROGEN 30 mg/dL (7-21); CALCIUM 8.8 mg/dL (8.4-10.5); CARBON DIOXIDE 27 mmol/L (21-33); CHLORIDE 106 mmol/L (98-107); GFR AFRICAN-AMERICAN > 60; GLUCOSE,RANDOM 127 mg/dL (70-110); POTASSIUM 4.2 mmol/L (3.6-5.0); SODIUM 140 mmol/L (132-148); TOTAL PROTEIN 6.9 g/dL (5.8-8.3)
[2016-12-08] MEDS ORDERED: Iohexol 240 (50 ml) ONE (17:33)
[2016-12-08] MEDS ORDERED: Morphine 2 mg/ml ISec IVP PRN (18:42)
--- NOTE | 2016-12-08 20:46 | CT ---
PROCEDURE: Attempted CT-guided gastrostomy tube placement. HISTORY: Tonsillar CA. Unable place endoscopic G-tube. Attempt CT-guided gastrostomy tube. PHYSICIAN(S): Ras Harrington MD. TECHNIQUE: The relative risks and indications for the procedure were explained to the patient and informed consent obtained. Initially the patient was placed in a sitting position and a small caliber NG tube advanced to the stomach. Its position was confirmed with injection of air and on CT imaging. The stomach was insufflated with air. The positioning of the stomach is difficult given elevated left hemidiaphragm and position of the transverse colon. A high anterior intercostal approach was selected. The patient was prepped and draped usual sterile fashion. Conscious sedation monitoring was provided throughout the procedure by a nurse. A 19 gauge needle was advanced into the stomach via an intercostal approach under CT guidance. 0.035 starter wire was coiled in the stomach. Dilatation with 14 Urdu dilator was performed. Unfortunately the 14 Urdu gastrostomy tube would not follow the guidewire and prolapsed outside the stomach. Its position outside the stomach was confirmed with injection of contrast. The tube was removed. IMPRESSION: 1. Unsuccessful attempt at placing a CT-guided gastrostomy tube. This was related to the elevated left hemidiaphragm and positioning of the transverse colon. 2. Patient may benefit from surgical gastrostomy tube placement. If his surgical risk is too high, a combined attempt at percutaneous placement can be performed with CT guidance for needle placement and then fluoroscopy for guidewire manipulation and tube placement. This is a challenging case for percutaneous placement
[2016-12-09] MEDS: Promethazine/Cod 6.25mg-10mg/5ml Syr UD PO PRN ×2 (03:27→09:50)
[2016-12-09 09:33] VITALS: BP 116/78; PULSE 82; RESP 20; TEMP 9931; O2SAT 99
--- NOTE | 2016-12-09 09:34 | CP.PCM.PN ---
Subjective - Date & Time of Evaluation Date of Evaluation: 12/09/16 Time of Evaluation: 09:29 - Subjective Subjective: Surgery for Dr. Rodriguez Pt s&e. Gatrostomy tube placement attempted but was unsuccessful. Pt tolerating CLD. Pt is to go home today. Explained that trachestomy may be needed to do open gastrostomy tube. Pt understood. Denies F/C/N/V/D/CP/SOB/hematemesis. Pain controlled. Objective - Vital Signs/Intake and Output Vital Signs (last 24 hours): Temp Pulse Resp BP Pulse Ox 98 F 72 18 120/80 93 L 12/08/16 18:47 12/08/16 18:47 12/08/16 18:47 12/08/16 18:47 12/08/16 18:47 Intake and Output: 12/09/16 12/09/16 06:59 18:59 Intake Total 0 Balance 0 - Medications Medications: Current Medications Acetaminophen (Tylenol 325mg Tab) 650 mg PO Q6H PRN PRN Reason: Pain, moderate (4-7) Last Admin: 12/08/16 19:04 Dose: 650 mg Azathioprine (Imuran) 50 mg PO DAILY [facility] Last Admin: 12/08/16 09:47 Dose: 50 mg Ferrous Sulfate (Feosol) 324 mg PO DAILY [facility] Last Admin: 12/08/16 09:47 Dose: 324 mg Dextrose/Sodium Chloride (Dextrose 5%/0.45% Ns 1000 Ml) 1,000 mls @ 100 mls/hr IV .Q10H [facility] Last Admin: 12/08/16 11:08 Dose: 100 mls/hr Morphine Sulfate (Morphine) 1 mg IVP Q4H PRN PRN Reason: Pain, severe (8-10) Ondansetron HCl (Zofran Inj) 4 mg IVP Q4H PRN PRN Reason: Nausea/Vomiting Pantoprazole Sodium (Protonix Inj) 40 mg IVP DAILY [facility] Last Admin: 12/08/16 09:48 Dose: 40 mg Prednisone (Prednisone Tab) 5 mg PO DAILY [facility] Last Admin: 12/08/16 09:48 Dose: 5 mg Promethazine HCl/Codeine (Phenergan/Codeine Oral Syrup) 5 ml PO Q4H PRN PRN Reason: Cough and congestion Last Admin: 05/20/17 03:27 Dose: 5 ml - Labs Labs: 12/08/16 07:00 12/08/16 07:00 PT 11.0 Seconds (9.9-11.8) 12/08/16 07:00 INR 1.02 (0.93-1.08) 12/08/16 07:00 APTT 28.5 Seconds (23.7-30.8) 12/08/16 07:00 - Constitutional Appears: No Acute Distress, Cachectic - Head Exam Head Exam: ATRAUMATIC, NORMAL INSPECTION, NORMOCEPHALIC - Eye Exam Eye Exam: EOMI, Normal appearance, PERRL Pupil Exam: NORMAL ACCOMODATION, PERRL - ENT Exam ENT Exam: Mucous Membranes Moist, Normal Exam - Neck Exam Neck Exam: Full ROM, Normal Inspection. absent: Lymphadenopathy, Tenderness, Thyromegaly - Respiratory Exam Respiratory Exam: Clear to Ausculation Bilateral, NORMAL BREATHING PATTERN - Cardiovascular Exam Cardiovascular Exam: REGULAR RHYTHM, +S1, +S2. absent: Murmur - GI/Abdominal Exam GI & Abdominal Exam: Soft, Normal Bowel Sounds. absent: Distended, Firm, Tenderness - Extremities Exam Extremities Exam: Full ROM, Normal Capillary Refill, Normal Inspection. absent : Joint Swelling, Pedal Edema - Back Exam Back Exam: NORMAL INSPECTION - Neurological Exam Neurological Exam: Alert, Awake, CN II-XII Intact, Normal Gait, Oriented x3 - Psychiatric Exam Psychiatric exam: Normal Affect, Normal Mood - Skin Skin Exam: Dry, Intact, Normal Color, Warm Assessment and Plan - Assessment and Plan (Free Text) Assessment: SCC of epiglottis -DC planning today -Pt may follow up with Dr. Rodriguez at the office to discuss possible open gatrostomy tube. Tracheostomy may be needed with ENT. SILVIO Rodriguez
--- NOTE | 2016-12-09 12:08 | CP.PCM.DIS ---
Provider - Provider Date of Admission: 12/06/16 05:30 Attending physician: Martha Mohr MD Time Spent in preparation of Discharge (in minutes): 35 Hospital Course - Lab Results Lab Results: Most Recent Lab Values WBC 6.1 10^3/ul (4.5-11.0) D 12/08/16 07:00 RBC 3.59 10^6/uL (3.5-6.1) 12/08/16 07:00 Hgb 10.7 gm/dL (14.0-18.0) L 12/08/16 07:00 Hct 31.2 % (42.0-52.0) L 12/08/16 07:00 MCV 86.9 fL (80.0-105.0) 12/08/16 07:00 MCH 29.8 pg (25.0-35.0) 12/08/16 07:00 MCHC 34.3 g/dl (31.0-37.0) 12/08/16 07:00 RDW 15.1 % (11.5-14.5) H 12/08/16 07:00 Plt Count 283 10^3/uL (120.0-450.0) 12/08/16 07:00 MPV 9.6 fl (7.0-11.0) 12/08/16 07:00 PT 11.0 Seconds (9.9-11.8) 12/08/16 07:00 INR 1.02 (0.93-1.08) 12/08/16 07:00 APTT 28.5 Seconds (23.7-30.8) 12/08/16 07:00 Sodium 141 mmol/L (132-148) 12/08/16 07:00 Potassium 3.7 mmol/L (3.6-5.0) 12/08/16 07:00 Chloride 104 mmol/L (98-107) 12/08/16 07:00 Carbon Dioxide 28 mmol/L (21-33) 12/08/16 07:00 Anion Gap 13 (10-20) 12/08/16 07:00 BUN 19 mg/dL (7-21) 12/08/16 07:00 Creatinine 1.4 mg/dL (0.5-1.4) 12/08/16 07:00 Est GFR ( Amer) > 60 12/08/16 07:00 Est GFR (Non-Af Amer) 54 12/08/16 07:00 Random Glucose 97 mg/dL (70-110) 12/08/16 07:00 Calcium 8.6 mg/dL (8.4-10.5) 12/08/16 07:00 Total Bilirubin 0.9 mg/dL (0.2-1.3) 12/08/16 07:00 AST 17 U/L (15-59) 12/08/16 07:00 ALT 27 U/L (7-56) 12/08/16 07:00 Alkaline Phosphatase 51 U/L (38-133) 12/08/16 07:00 Total Protein 6.5 g/dL (5.8-8.3) 12/08/16 07:00 Albumin 3.2 g/dL (3.0-4.8) 12/08/16 07:00 Globulin 3.3 gm/dL 12/08/16 07:00 Albumin/Globulin Ratio 1.0 (1.1-1.8) L 12/08/16 07:00 Blood Type O POSITIVE 12/06/16 04:00 Blood Type Confirm O POSITIVE 12/06/16 04:15 Antibody Screen Negative 12/06/16 04:00 Crossmatch See Detail 12/06/16 04:00 BBK History Checked No verified bt 12/06/16 04:00 - Hospital Course Hospital Course: Patient is a 46-year-old male with a past medical history of epiglottis cancer/SCC is admitted with hemoptysis/spitting blood after coughing. Patient also had dysphagia. 1. 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 s/p 2 units of blood transfusion. Hemoglobin is 10. Hematology consultation with Dr. Bar appreciated. Initially planned for PEG tube by surgery. Anesthesia had concerns about possible complications of intubation during surgery. Patient was referred to intervention radiology for PEG placement. 2. failed attempt of PEG placement by intervention radiology Dr. Harrington yesterday. Patient will follow-up with Dr. Rodriguez surgery as outpatient. Possibility of tracheostomy explained in detail. 3.ENT evaluation appreciated. 4.History of renal transplant; continue Imuran and prednisone. Patient will follow-up with PMD of choice upon discharge. Follow-up with Dr. Bar for chemotherapy. Patient will get a PET scan as outpatient. follow-up with radiation oncology at [facility]. Follow-up with dentist Dr. Blakely. the diagnosis, follow-up plan discussed with patient in detail. 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 dressing changed. - Back Exam Back exam: absent: CVA tenderness (L), CVA tenderness (R) - Neurological Exam Neurological exam: Alert - Psychiatric Exam Psychiatric exam: Normal Affect - Skin Skin Exam: Normal Color Discharge Plan - Discharge Medications Prescriptions: azaTHIOprine [Imuran] 50 mg PO DAILY #30 tab Ferrous Sulfate [Iron] 325 mg PO DAILY #30 predniSONE [predniSONE Tab] 5 mg PO DAILY #30 guaiFENesin [guaifENESIN] 100 mg PO Q4 #20 udc Acetaminophen [Tylenol 325mg tab] 325 mg PO Q6 #10 tab - Follow Up Plan Condition: STABLE Disposition: HOME/ ROUTINE Instructions: Acute Epiglottitis (GEN), Percutaneous Endoscopic Gastrostomy Insertion (DC), How to Use and Care for Your PEG Tube (DC), Soft Diet (DC), Clear Liquid Diet (DC) Additional Instructions: Patient is to follow up with PMD upon discharge. Patient is to follow up with Site Monitor/Oncologist, Dr. Bar upon discharge for further treatment and rescheduling of PET scan. Follow up with Dr. Rodriguez for surgical PEG placement. follow up with Radiation oncology . follow up with dentist Dr. Cerna. Needs follow up with nephrology as outpatient. Referrals: Dipika MCKAY,MD Hector [Staff Provider] -
== END 2016-12-09 14:00 | disposition home or self-care (01) ==
LOC: ED 03:05 → ERH 05:30 → 5RNO 08:57
PROVIDERS: ADMIT Internal Medicine; ATTEND Internal Medicine
DX: R04.2 Hemoptysis (principal); C32.1 Malignant neoplasm of supraglottis; R13.10 Dysphagia, unspecified; D50.0 Iron deficiency anemia secondary to blood loss (chronic); D63.0 Anemia in neoplastic disease; Z94.0 Kidney transplant status; Q60.0 Renal agenesis, unilateral; R63.4 Abnormal weight loss; Z68.1 Body mass index [BMI] 19.9 or less, adult
CPT/HCPCS: 31525; 36415; 36430; 71010; 75989; 80053; 85027; 85610; 85730; 86850; 86900; 86920; 92610; 93005; 96374; 96376; 99284; C9113; G0378; G8996; G8997; G8998; J2250; J3010; J7042; J7500; P9016; Q9966